=== PATIENT | male | born 1965 | race Caucasian/White ===

== ENCOUNTER 2021-07-21 19:27 | Emergency (ER) | payer OTHER ==
[2021-07-21 19:42] LABS: BASOPHIL 0.7 % (0-2); EOSINOPHIL 4.4 % (0-5); HCT 41.7 % (42.0-52.0); HGB 13.9 g/dl (13.2-18.0); MCHC 33.3 g/dL (32.0-36.0); MCV 96.1 fL (78.0-100.0); MONOCYTE 10.3 % (0-12); MPV 9.3 fL (6.0-9.5); NEUTROPHIL 59.3 % (41-80); NRBC 0; PLT 235 K/uL (150-400); RBC 4.34 M/uL (4.70-6.00); RDW 12.7 % (11.5-14.0); WBC 8.6 K/uL (4.0-10.5)
[2021-07-21 20:02] LABS: ALBUMIN 2.9 g/dL (3.4-5.0); BILIRUBIN - TOTAL 0.3 mg/dL (0.2-1.0); CREATININE 0.82 mg/dL (0.67-1.17); GLOBULIN (CALCULATION) 3.4 g/dL; POTASSIUM 4.5 mmol/L (3.5-5.1); TOTAL PROTEIN 6.3 g/dL (6.4-8.2)
[2021-07-21 20:49] LABS: CORONAVIRUS 2019 SARS-COV-2 NEGATIVE (NEGATIVE); INFLUENZA A NAA NEGATIVE (NEGATIVE)
== END 2021-07-21 23:08 | disposition home or self-care (01) ==
LOC: FER 19:27
PROVIDERS: Internal Medicine
DX: R07.89 Other chest pain (principal); B34.9 Viral infection, unspecified; I25.2 Old myocardial infarction; F17.210 Nicotine dependence, cigarettes, uncomplicated; Z20.822 Contact with and (suspected) exposure to COVID-19; Z28.310 Unvaccinated for COVID-19
CPT/HCPCS: 36415; 71045; 80053; 83880; 84145; 84484; 85025; 93005; U0002